=== PATIENT | female | born 1940 | race Caucasian/White ===

== ENCOUNTER 2016-09-08 11:00 | Outpatient (CLI) | payer MEDICARE, OTHER | END 2016-09-08 23:59 | DX: R30.0 Dysuria (principal) ==

== ENCOUNTER 2017-06-29 08:00 | Outpatient (CLI) | payer MEDICARE, OTHER | END 2017-06-29 08:01 | disposition home or self-care (01) | LOC: LAB.WCP 08:00 | PROVIDERS: ATTEND Family Medicine | DX: R30.0 Dysuria (principal) | CPT/HCPCS: 87077; 87086 ==

== ENCOUNTER 2017-11-03 08:00 | Outpatient (CLI) | payer MEDICARE, OTHER | END 2017-11-03 08:01 | disposition home or self-care (01) | LOC: LAB.WCP 08:00 | PROVIDERS: ATTEND Family Medicine | DX: R30.0 Dysuria (principal) | CPT/HCPCS: 87077; 87086; 87181 ==

== ENCOUNTER 2017-11-04 08:00 | Outpatient (CLI) | payer MEDICARE, OTHER | END 2017-11-04 08:01 | disposition home or self-care (01) | LOC: LAB.WCP 08:00 | PROVIDERS: ATTEND Family Medicine | DX: K52.9 Noninfective gastroenteritis and colitis, unspecified (principal) | CPT/HCPCS: 81599; 83630; 87045; 87046; 87329; 87493 ==

== ENCOUNTER 2018-08-05 07:45 | Outpatient (CLI) | payer MEDICARE, OTHER ==
[2018-08-05 14:14] LABS: BASOPHILS % (AUTO) 0.8 %; EOSINOPHILS # (AUTO) 0.1 10^3/uL (0.0-0.7); EOSINOPHILS % (AUTO) 1.9 %; HGB - HEMOGLOBIN 13.9 g/dL (12.0-16.0); LYMPHOCYTES # (AUTO) 1.6 10^3/uL (1.5-3.5); LYMPHOCYTES % (AUTO) 32.7 %; MEAN CORPUSCULAR HGB CONC 33.3 g/dL (32.0-36.0); MEAN CORPUSCULAR VOLUME 87.2 fL (81.0-99.0); MEAN PLATELET VOLUME 7.4 fL (7.9-10.8); MONOCYTES # (AUTO) 0.4 10^3/uL (0.0-1.0); MONOCYTES % (AUTO) 8.4 %; NEUTROPHILS # (AUTO) 2.7 10^3/uL (1.5-6.6); NEUTROPHILS % (AUTO) 56.2 %; PLT - PLATELET COUNT 236 10^3/uL (130-450); RED BLOOD COUNT 4.77 10^6/uL (4.20-5.40); RED CELL DISTRIBUTION WIDTH 12.9 % (12.0-15.0); WHITE BLOOD COUNT 4.8 x10^3/uL (4.8-10.8)
[2018-08-05 14:40] LABS: ALBUMIN/GLOBULIN RATIO 1.3 (1.0-2.2); BILIRUBIN,TOTAL 0.8 mg/dL (0.2-1.0); CALCIUM 9.7 mg/dL (8.5-10.3); CREATININE 1.3 mg/dL (0.4-1.0)
== END 2018-08-05 07:46 | disposition home or self-care (01) ==
LOC: LAB.WCP 07:45
PROVIDERS: ATTEND Family Medicine
DX: I10 Essential (primary) hypertension (principal)
CPT/HCPCS: 36415; 80053; 85025

== ENCOUNTER 2019-02-17 08:00 | Outpatient (CLI) | payer MEDICARE, OTHER | END 2019-02-17 23:59 | disposition home or self-care (01) | LOC: LAB.WCP 08:00 | PROVIDERS: ATTEND Family Medicine | DX: N39.0 Urinary tract infection, site not specified (principal) | CPT/HCPCS: 81002 ==

== ENCOUNTER 2019-02-23 14:31 | Outpatient (CLI) | payer MEDICARE, OTHER ==
--- NOTE | 2019-02-24 15:32 | Ultrasound Report ---
Reason: TRANSIENT GLOBAL AMNESIA Procedure Date: 02/23/2019 Accession Number: [id number] / [id number] Procedure: US - Carotid Doppler Complete CPT Code: FULL RESULT: EXAM: BILATERAL CAROTID AND VERTEBRAL ARTERY DUPLEX DOPPLER ULTRASOUND: EXAM DATE: 02/23/2019 03:48 PM CLINICAL HISTORY: Transient global amnesia. COMPARISON: None. TECHNIQUE: Grayscale imaging, color Doppler, and duplex spectral Doppler were used to evaluate the carotid and vertebral arteries bilaterally. Static images were obtained. FINDINGS: No significant plaque is identified in the right or left common or internal carotid arteries. Normal antegrade flow is present in bilateral vertebral arteries. VELOCITIES (cm/sec): Right CCA mid: PSV 93 cm/sec CCA dist: PSV 79 cm/sec ICA prox: PSV 79 cm/sec, EDV 12 cm/sec ICA mid: PSV 78 cm/sec, EDV 13 cm/sec ICA dist: PSV 91 cm/sec, EDV 17 cm/sec ECA: PSV 128 cm/sec Vert: PSV 52 cm/sec ICA/CCA: .97 Left CCA mid: PSV 73 cm/sec CCA dist: PSV 80 cm/sec ICA prox: PSV 82 cm/sec, EDV 11 cm/sec ICA mid: PSV 73 cm/sec, EDV 12 cm/sec ICA dist: PSV 62 cm/sec, EDV 12 cm/sec ECA: PSV 91 cm/sec Vert: PSV 67 cm/sec ICA/CCA: 1.02 ICA diameter stenosis: Right: <50% by velocity and <70% by NASCET criteria. Left: <50% by velocity and <70% by NASCET criteria. IMPRESSION: 1. No significant bilateral carotid artery plaquing. 2. In the right carotid artery there are no elevated carotid artery velocities to suggest hemodynamically significant stenosis. 3. In the left carotid artery there are no elevated carotid artery velocities to suggest hemodynamically significant stenosis. 4. Normal antegrade flow is present in bilateral vertebral arteries. General Recommendations: Stenosis =50% ICA - Follow-up ultrasound 6-12 months Stenosis <50% ICA - High Risk Patient with plaque - Follow-up ultrasound 1-2 years Normal Study but High Risk Patient - Follow-up ultrasound 3-5 years Management recommendations and diagnostic criteria are based on current IAC endorsed standards in Carotid Artery Stenosis: Grayscale and Doppler Ultrasound Diagnosis. Validated velocity measurements with angiographic measurements and velocity criteria are extrapolated from diameter data as defined by the Society of Radiologists in Ultrasound Consensus Conference Radiology 2003; 229;340-346. RADIA
== END 2019-02-23 14:32 | disposition home or self-care (01) ==
LOC: DI 14:31
PROVIDERS: ATTEND Family Medicine
DX: G45.4 Transient global amnesia (principal)
CPT/HCPCS: 93880

== ENCOUNTER 2019-04-05 19:03 | Emergency (ER) | payer MEDICARE, OTHER ==
[2019-04-05 19:45] LABS: BASOPHILS % (AUTO) 0.4 %; EOSINOPHILS # (AUTO) 0.1 10^3/uL (0.0-0.7); EOSINOPHILS % (AUTO) 1.1 %; HGB - HEMOGLOBIN 11.7 g/dL (12.0-16.0); LYMPHOCYTES # (AUTO) 1.7 10^3/uL (1.5-3.5); MEAN CORPUSCULAR HEMOGLOBIN 28.9 pg (27.0-31.0); MEAN CORPUSCULAR HGB CONC 32.8 g/dL (32.0-36.0); MEAN CORPUSCULAR VOLUME 88.1 fL (81.0-99.0); MONOCYTES # (AUTO) 0.8 10^3/uL (0.0-1.0); MONOCYTES % (AUTO) 10.4 %; NEUTROPHILS # (AUTO) 4.8 10^3/uL (1.5-6.6); NEUTROPHILS % (AUTO) 63.8 %; PLT - PLATELET COUNT 239 10^3/uL (130-450); RED BLOOD COUNT 4.05 10^6/uL (4.20-5.40); RED CELL DISTRIBUTION WIDTH 12.4 % (12.0-15.0); WHITE BLOOD COUNT 7.5 x10^3/uL (4.8-10.8)
[2019-04-05 19:57] LABS: ALBUMIN 3.7 g/dL (3.2-5.5); ALBUMIN/GLOBULIN RATIO 1.1 (1.0-2.2); BILIRUBIN,TOTAL 0.7 mg/dL (0.2-1.0); CALCIUM 8.9 mg/dL (8.5-10.3); CREATININE 1.8 mg/dL (0.4-1.0)
--- NOTE | 2019-04-05 20:32 | XRAY Report ---
Reason: CP Procedure Date: 04/05/2019 Accession Number: [id number] / [id number] Procedure: XR - Chest 2 View X-Ray CPT Code: 08323 FULL RESULT: EXAM: CHEST RADIOGRAPHY EXAM DATE: 04/05/2019 08:02 PM. CLINICAL HISTORY: CP. COMPARISON: None. TECHNIQUE: 2 views. FINDINGS: Lungs/Pleura: Mild increased density at the left base. No large effusion or pneumothorax. No pulmonary edema. Mediastinum: Heart and mediastinal contours are unremarkable. Other: None. IMPRESSION: Mild increased density at the left base, may reflect atelectasis or pneumonia. RADIA
--- NOTE | 2019-04-05 20:59 | ED Physician Documentation ---
History of Present Illness - Stated complaint Stated Complaint: L SIDE PX - Chief complaint Chief Complaint: General - History obtained from History obtained from: Patient - History of Present Illness Timing: Last night Pain level now: 8 Improved by: rest Worsened by: movement, deep breath in (inspiration), coughing - Additonal information Additional information: since yesterday, has had gradual onset but steadily worsening LUQ and left low anterolateral chest pain that is worse with deep breath in, coughing, movement. Denies h/o similar symptoms. Review of Systems Constitutional: denies: Fever, Chills, Sweats Cardiac: reports: Chest pain / pressure. 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 HEENT: Cataracts - Present Medications Home Medications: Ambulatory Orders Medication Instructions Recorded Confirmed Fenofibrate Nanocrystallized 145 mg PO DAILY 08/19/13 07/11/15 [Fenofibrate] Lisinopril [Prinivil] 20 mg PO DAILY 08/19/13 07/11/15 Simvastatin [Zocor] 14 mg PO QPM 08/19/13 07/11/15 hydroCHLOROthiazide [Hydrodiuril] 25 mg PO DAILY 08/19/13 07/11/15 Hydrocodone/Acetaminophen 0.5 - 1 each PO Q6H PRN #10 tablet 04/05/19 [Hydrocodon-Acetaminophen 5-325] - Allergies Allergies/Adverse Reactions: Allergies Allergy/AdvReac Type Severity Reaction Status Date / Time nystatin Allergy Severe Rash Verified 04/05/19 19:11 Sulfa (Sulfonamide Allergy Unknown Verified 04/05/19 19:11 Antibiotics) - Social History Does the pt smoke?: No Smoking Status: Never smoker Does the pt drink ETOH?: No Does the pt have substance abuse?: No - Immunizations Immunizations are current?: Yes - POLST Patient has POLST: No PD ED PE NORMAL - Vitals Vital signs reviewed: Yes - General General: Alert and oriented X 3, Well developed/nourished, Other (appears to be uncomfortable due to pain, more so with movement) - HEENT HEENT: Other (pasty/tacky mucous membranes) - Neck Neck: Supple, no meningeal sign - Cardiac Cardiac: RRR, No murmur - Respiratory Respiratory: No respiratory distress, Clear bilaterally - Abdomen Abdomen: Soft, Non distended, Other (TTP left abdomen, LLQ>LUQ) - Back Back: No CVA TTP, No spinal TTP - Derm Derm: Normal color, Warm and dry, No rash - Extremities Extremities: No edema - Neuro Neuro: Alert and oriented X 3 Results - Vitals Vitals: Vital Signs - 24 hr 04/05/19 04/05/19 04/05/19 19:11 19:52 21:25 Temperature 36.7 C Heart Rate 89 73 69 Respiratory 18 17 24 Rate Blood Pressure 145/61 H 155/69 H 144/65 H O2 Saturation 97 98 98 04/05/19 04/05/19 04/05/19 22:16 22:56 23:38 Temperature Heart Rate 71 70 69 Respiratory 22 20 22 Rate Blood Pressure 150/82 H 123/67 147/66 H O2 Saturation 96 98 96 Oxygen O2 Source [] Room air O2 Source Room air - Labs Labs: Laboratory Tests 04/05/19 04/05/19 04/05/19 19:34 19:34 19:34 WBC 7.5 RBC 4.05 L Hgb 11.7 L Hct 35.7 L MCV 88.1 MCH 28.9 MCHC 32.8 RDW 12.4 Plt Count 239 MPV 9.0 Neut # (Auto) 4.8 Lymph # (Auto) 1.7 [place] # (Auto) 0.8 Eos # (Auto) 0.1 Baso # (Auto) 0.0 Absolute Nucleated RBC 0.00 Nucleated RBC % 0.0 Sodium 137 Potassium 3.5 Chloride 103 Carbon Dioxide 23 Anion Gap 11.0 BUN 35 H Creatinine 1.8 H Estimated GFR (MDRD) 27 L Glucose 163 H Calcium 8.9 Total Bilirubin 0.7 AST 16 ALT 12 Alkaline Phosphatase 26 L Troponin I High Sens 6.5 Total Protein 7.0 Albumin 3.7 Globulin 3.3 Albumin/Globulin Ratio 1.1 Lipase 42 - Rads (name of study) CT A/P Radiology: Prelim report reviewed, See rad report chest xray Radiology: Prelim report reviewed, See rad report PD MEDICAL DECISION MAKING - ED course Complexity details: reviewed results, re-evaluated patient, considered differential, d/w patient ED course: does not c/o abdominal pain but significant tenderness on exam of abdomen, LLQ>LUQ, thus CT performed. CT A/P does not show acute pathology nor any findings that would explain her symptoms. She had good relief with 2mg morphine x 2 doses and is comfortable with d/c home. Departure - Departure Disposition: , Self Care Clinical Impression: Abdominal pain Condition: Good Instructions: ED Abdominal Pain Unkn Cause, ED Chest Pain Atypical Unkn Cause Follow-Up: Yasmani Cruz MD [Primary Care Provider] - (Call in the morning to arrange for next available appointment) Prescriptions: Hydrocodone/Acetaminophen [Hydrocodon-Acetaminophen 5-325] 0.5 - 1 each PO Q6H PRN #10 tablet PRN Reason: pain Discharge Date/Time: 04/06/19 00:15
[2019-04-05] MEDS ORDERED: MORPHINE 2 MG/ML CARPUJECT IVP STA ×2 (21:15→22:12)
--- NOTE | 2019-04-05 22:37 | CT Report ---
Reason: LLQ pain Procedure Date: 04/05/2019 Accession Number: [id number] / [id number] Procedure: CT - Abdomen/Pelvis WO CPT Code: FULL RESULT: EXAM: CT ABDOMEN AND PELVIS (CT KUB) EXAM DATE: 04/05/2019 09:48 PM. CLINICAL HISTORY: LLQ pain. COMPARISONS: ABDOMEN/PELVIS W/O 08/31/2013 1:25 PM. TECHNIQUE: Routine helical CT imaging was performed through the abdomen and pelvis without intravenous contrast. Lack of intravenous contrast can at times limit scan sensitivity, particularly for the detection of intraparenchymal and vascular pathology. Reconstructions: Coronal and sagittal. In accordance with CT protocol optimization, one or more of the following dose reduction techniques were utilized for this exam: automated exposure control, adjustment of mA and/or KV based on patient size, or use of iterative reconstructive technique. FINDINGS: ABDOMEN: Lung Bases: Incompletely included lower lungs demonstrate geographic groundglass in the left lower lobe, probably atelectasis. Small left effusion. Heart size is within normal limits. No basilar effusions. Small hiatal hernia. Liver: 2.4 cm left hepatic lobe cyst. Gallbladder/Bile Ducts: Small gallstone. Gallbladder is decompressed. Visualized biliary tree is normal caliber. Spleen: Unremarkable. Pancreas: Unremarkable. Adrenal Glands: Unremarkable. Kidneys: No calculi or hydronephrosis. Peritoneum/Mesentery/Bowel: No free fluid, free air, or collection. No intestinal obstruction or inflammation. Duodenal diverticulum. The appendix is within normal limits. Lymph nodes: No mesenteric, periportal, or retroperitoneal lymphadenopathy. PELVIS: The bladder is unremarkable for the degree of distention. Uterus is absent. No pelvic lymphadenopathy. Retroperitoneum: Abdominal aorta is nonaneurysmal. Bones: No suspicious osseous lesions. Small fat filled supraumbilical hernia measuring 3.1 cm. IMPRESSION: No acute unenhanced intra-abdominal abnormalities. Small left pleural effusion. Coronary artery calcifications. Tiny gallstone. RADIA
[2019-04-05 23:40] VITALS: BP 147/66
[2019-04-06] MEDS ORDERED: HYDROcod/ACET 5/325 Prepack 4 PO STA (00:01)
== END 2019-04-06 00:15 | disposition home or self-care (01) ==
LOC: ED 19:03
DX: R10.12 Left upper quadrant pain (principal); R07.9 Chest pain, unspecified; K80.20 Calculus of gallbladder without cholecystitis without obstruction; K76.89 Other specified diseases of liver; I10 Essential (primary) hypertension
CPT/HCPCS: 36415; 71046; 74176; 80053; 83690; 84484; 85025; 93005; 96374; 96376; 99284